=== PATIENT | female | born 1980 | race Caucasian/White ===

== ENCOUNTER 2017-08-12 09:11 | Inpatient (IN) | payer OTHER ==
[~2017-08-12] VITALS: Ht 157.5 cm; Wt 78.5 kg
[2017-08-12] MEDS ORDERED: OXYTOCIN 30 UNITS/LACT RINGERS 500 ML IV ONE (09:19)
[2017-08-12] MEDS ORDERED: RINGERS SOLUTION,LACTATED 1,000 ML IV PRN (09:19)
[2017-08-12] MEDS ORDERED: PREN1TAB80 PO (09:24)
[2017-08-12] MEDS ORDERED: OXYGEN THERAPY IH SCH (09:30)
[2017-08-12] MEDS ORDERED: AMPICILLIN SODIUM 2 GM/NS 100 ML IV ONE (09:30)
[2017-08-12] MEDS ORDERED: FentaNYL CITRATE-PF 100 MCG/2 ML VIAL IVP PRN (09:30)
[2017-08-12] MEDS ORDERED: CITRIC ACID/SODIUM CITRATE 30 ML SOLUTION UDCUP PO PRN (09:30)
[2017-08-12] MEDS ORDERED: METOCLOPRAMIDE HCL 5 MG/ML 2 ML VIAL IVP PRN (09:30)
[2017-08-12 10:04] LABS: BASOPHILS % (AUTO) 0.4 % (0.0-2.0); EOSINOPHILS % (AUTO) 0.6 % (1.0-6.0); HEMATOCRIT 37.4 % (36-46); HEMOGLOBIN 13.1 g/dL (12.0-16.0); LYMPHOCYTES # (AUTO) 1.1 K/uL (1.0-4.8); LYMPHOCYTES % (AUTO) 16.8 % (22.0-44.0); MEAN CORPUSCULAR HEMOGLOBIN 30.9 pg (26.0-34.0); MEAN CORPUSCULAR HGB CONC 35.1 G/dL (31.0-37.0); MEAN CORPUSCULAR VOLUME 88 fL (80-100); MONOCYTES # (AUTO) 0.3 K/uL (0.1-1.0); MONOCYTES % (AUTO) 5.5 % (2.0-9.0); NEUTROPHILS # (AUTO) 4.8 K/uL (1.8-7.7); NEUTROPHILS % (AUTO) 76.7 % (40.0-70.0); PLATELET COUNT (AUTO) 186 K/uL (150-450); RED BLOOD CELL COUNT(AUTO) 4.24 MIL/uL (4.00-5.20); RED CELL DISTRIBUTION WIDTH 14.9 % (11.5-14.5)
[2017-08-12] MEDS: RINGERS SOLUTION,LACTATED 1,000 ML IV SCH ×2 (11:10→17:58)
[2017-08-12 11:27] VITALS: BP 116/59
[2017-08-12] MEDS ORDERED: MISOPROSTOL 25 MCG TABLET VG ONE ×3 (11:45→22:00)
[2017-08-12] MEDS: AMPICILLIN SODIUM 1 GM/NS 50 ML IV SCH ×2 (16:36→20:25)
[2017-08-12 21:26] VITALS: BP 102/64
[2017-08-12] MEDS ORDERED: OXYTOCIN 30 UNITS/LACT RINGERS 500 ML IV PRN (21:55)
[2017-08-13] MEDS: AMPICILLIN SODIUM 1 GM/NS 50 ML IV SCH ×2 (00:28→04:19)
[2017-08-13] MEDS: RINGERS SOLUTION,LACTATED 1,000 ML IV SCH ×3 (01:10→03:14)
[2017-08-13] MEDS ORDERED: ROPIVACAINE HCL/PF 0.2% 100 ML ED ONE (01:17)
[2017-08-13] MEDS ORDERED: LIDOCAINE HCL/PF 2% 5 ML VIAL ONE (01:17)
[2017-08-13] MEDS ORDERED: FentaNYL/BUPIV 0.125%/NS/PF 200 ML ED PRN (01:44)
[2017-08-13] MEDS ORDERED: DiphenhydrAMINE HCL 50 MG/ML VIAL IVP PRN (01:45)
[2017-08-13] MEDS ORDERED: NALBUPHINE HCL 10 MG/ML VIAL IVP PRN (01:45)
[2017-08-13] MEDS ORDERED: ONDANSETRON HCL 4 MG/2 ML VIAL IVP PRN (01:45)
[2017-08-13] MEDS ORDERED: RINGERS SOLUTION,LACTATED 1,000 ML IV ONE (07:27)
[2017-08-13] MEDS ORDERED: GLYCERIN/WITCH HAZEL LEAF 40 PADS JAR TP PRN (07:30)
[2017-08-13] MEDS ORDERED: BENZOCAINE 20%/MENTHOL 56 GM SPRAY CANISTER TP PRN (07:30)
[2017-08-13] MEDS ORDERED: IBUPROFEN 600 MG TABLET PO PRN (07:30)
[2017-08-13] MEDS ORDERED: LANOLIN 7 GM OINTMENT TP PRN (07:30)
[2017-08-13] MEDS ORDERED: MEASLES/MUMPS/RUBELLA VACCINE, LIVE 0.5 ML/VIAL SQ ONE (07:30)
[2017-08-13] MEDS ORDERED: OxyCODONE HCL/ACETAMINOPHEN 5-325 MG TABLET PO PRN ×2 (07:30)
[2017-08-13] MEDS: MAGNESIUM HYDROXIDE SUSPENSION 30 ML UDCUP PO SCH ×2 (09:27→21:39)
[2017-08-14] MEDS ORDERED: IBUP-2070 PO (07:25)
== END 2017-08-14 09:00 | disposition home or self-care (01) | DRG 775 ==
LOC: INTOOBSV 09:11 → OBSVTOIN 09:11 → 4S 09:11
PROVIDERS: ADMIT Obstetrics & Gynecology; ATTEND Obstetrics & Gynecology
PROC: 10E0XZZ Delivery of Products of Conception, External Approach (ICD-10-PCS; principal; 2017-08-13)
PROC: 3E0R3BZ Introduction of Anesthetic Agent into Spinal Canal, Percutaneous Approach (ICD-10-PCS; 2017-08-13)
PROC: 00HU33Z Insertion of Infusion Device into Spinal Canal, Percutaneous Approach (ICD-10-PCS; 2017-08-13)
PROC: 0HQ9XZZ Repair Perineum Skin, External Approach (ICD-10-PCS; 2017-08-13)
DX: O99.824 Streptococcus B carrier state complicating childbirth (principal); Z37.0 Single live birth; O70.0 First degree perineal laceration during delivery; Z3A.39 39 weeks gestation of pregnancy
CPT/HCPCS: J0290; J2590; J2795; J3490; J7120